=== PATIENT | female | born 1955 | race Caucasian/White ===

== ENCOUNTER → 2017-05-30 | Outpatient (CLI) | payer MEDICAID ==
[~2017-05-30] MED LIST: ALDACTONE 25MG25 MG PO; ASPIRIN 81MG TA81 MG PO; ATIVAN GENERIC0.5 MG PO; ATORVASTATIN CA20 MG PO; HABITROL21 MG/24 H TD; IPRATROPIUM BROM3 M1 INH; LEVOTHYROXINE0.05 MG PO
[2017-05-30 12:00] LABS: BUN 14 mg/dL (7-18); GFR (ESTIMATED) 57 ML/MIN (59-)
== END ==
LOC: LAB 10:15
PROVIDERS: Internal Medicine
DX: E11.59 Type 2 diabetes mellitus with other circulatory complications (principal); I25.118 Atherosclerotic heart disease of native coronary artery with other forms of angina pectoris; J84.9 Interstitial pulmonary disease, unspecified; J96.11 Chronic respiratory failure with hypoxia; F17.209 Nicotine dependence, unspecified, with unspecified nicotine-induced disorders